=== PATIENT | female | born 1960 | race Caucasian/White ===

== ENCOUNTER → 2019-08-09 | Outpatient (REF) | payer SELFPAY | LOC: M LAB REF 14:37 | PROVIDERS: ATTEND Physician Assistant | DX: R10.33 Periumbilical pain (principal) ==

== ENCOUNTER → 2019-09-27 | Outpatient (CLI) | payer MEDICAID, SELFPAY ==
--- NOTE | 2019-09-27 14:09 | REP ---
PELVIC ULTRASOUND: Real-time sonographic evaluation of the pelvis performed utilizing transabdominal and endovaginal technique. The urinary bladder measures 6.8 x 5.7 x 8.3 cm for a total volume of 210 mL. After voiding, postvoid residual is 12 mL, which is 6% of the original volume. The uterus measures 7.4 x 2.6 x 4.4 cm. Endometrial thickness is approximately 5 mm, at the upper limits of normal. No endometrial fluid collection is seen. Ovaries are normal in size and echotexture, right ovary measuring 2.0 x 1.1 x 1.3 cm and left ovary 1.8 x 1.8 x 1.6 cm. There is no adnexal mass or free fluid. There is no evidence of ovarian torsion, blood flow is seen in each ovary with duplex Doppler evaluation. An intramural fibroid in the posterior uterine body measures 1.2 cm in diameter. IMPRESSION: Posterior uterine fibroid 1.2 cm in diameter. Endometrial thickness upper limits of normal at 5 mm. No mass or free fluid. Electronically Signed by Earnest Cross MD 09/27/2019 02:57 P
== END ==
LOC: M RAD 11:09
PROVIDERS: ATTEND Physician Assistant
DX: R10.2 Pelvic and perineal pain (principal); R35.0 Frequency of micturition; R10.33 Periumbilical pain

== ENCOUNTER → 2019-10-18 | Outpatient (REF) | payer BC, MEDICAID, SELFPAY ==
[2019-10-18 11:35] LABS: BASO % 0.6 % (0.0-1.0); EOS # 0.1 10^3/uL (0.0-0.5); EOS % 1.3 % (0.0-3.0); HEMOGLOBIN 11.6 g/dl (12.0-15.5); LYMPH # 1.9 10^3/uL (1.5-5.0); LYMPH % 40.6 % (24.0-44.0); MEAN CORPUSCULAR HEMOGLOBIN 27.6 pg (27.0-33.0); MEAN CORPUSCULAR HGB CONC 31.4 g/dl (32.0-36.5); MEAN CORPUSCULAR VOLUME 87.9 fl (80.0-96.0); MONO # 0.4 10^3/uL (0.0-0.8); MONO % 8.8 % (0.0-5.0); NEUTROPHILS # 2.2 10^3/uL (1.5-8.5); NEUTROPHILS % 48.3 % (36.0-66.0); PLATELET COUNT, AUTOMATED 322 10^3/uL (150-450); RED BLOOD COUNT 4.21 10^6/uL (4.00-5.40); WHITE BLOOD COUNT 4.7 10^3/uL (4.0-10.0)
[2019-10-18 12:00] LABS: ERYTHROCYTE SEDIMENTATION RATE 21 mm/hr (0-30)
[2019-10-18 12:02] LABS: ALBUMIN 3.4 GM/DL (3.2-5.2); ALT/SGPT 21 U/L (12-78); BILIRUBIN,TOTAL 0.3 MG/DL (0.2-1.0); BLOOD UREA NITROGEN 15 MG/DL (7-18); CALCIUM LEVEL 9.3 MG/DL (8.5-10.1); CARBON DIOXIDE LEVEL 29 MEQ/L (21-32); CHLORIDE LEVEL 107 MEQ/L (98-107); CREATININE FOR GFR 0.92 MG/DL (0.55-1.30); GLOMERULAR FILTRATION RATE > 60.0 (>51); GLUCOSE, FASTING 106 MG/DL (70-100); POTASSIUM SERUM 4.1 MEQ/L (3.5-5.1); RHEUMATOID FACTOR QUANT < 10.0 IU/ML (<15.0); SODIUM LEVEL 141 MEQ/L (136-145); TOTAL PROTEIN 7.1 GM/DL (6.4-8.2)
[2019-10-18 12:51] LABS: HEPATITIS C VIRUS ABY INDEX 0.1 INDEX (<0.8)
[2019-10-22 14:07] LABS: CYCLIC CITRULLINATED PEPTIDE 9 units (0-19); HEPATITIS B CORE ANTIBODY IGG Negative (Negative); HEPATITIS BE ANTIGEN Negative (Negative)
== END ==
LOC: M SFHCRHEU 10:12 → M PLALAB 10:12
PROVIDERS: ATTEND Internal Medicine
DX: M06.9 Rheumatoid arthritis, unspecified (principal)

== ENCOUNTER → 2022-08-10 | Outpatient (CLI) | payer BC ==
[2022-08-10 11:10] LABS: BASO % 0.7 % (0.0-1.0); EOS # 0.1 10^3/uL (0.0-0.5); EOS % 1.6 % (0.0-3.0); HEMATOCRIT 36.5 % (36.0-47.0); HEMOGLOBIN 11.5 g/dl (12.0-15.5); LYMPH # 1.9 10^3/uL (1.5-5.0); MEAN CORPUSCULAR HEMOGLOBIN 28.5 pg (27.0-33.0); MEAN CORPUSCULAR HGB CONC 31.5 g/dl (32.0-36.5); MEAN CORPUSCULAR VOLUME 90.6 fl (80.0-96.0); MONO # 0.4 10^3/uL (0.0-0.8); MONO % 9.8 % (2.0-8.0); NEUTROPHILS % 45.7 % (36.0-66.0); PLATELET COUNT, AUTOMATED 274 10^3/uL (150-450); RED BLOOD COUNT 4.03 10^6/uL (4.00-5.40); WHITE BLOOD COUNT 4.4 10^3/uL (4.0-10.0)
[2022-08-10 11:57] LABS: URIC ACID 3.9 MG/DL (3.1-7.8)
[2022-08-10 11:59] LABS: C REACTIVE PROTEIN QUANTITATIV < 0.40 MG/DL (<1.0)
[2022-08-10 12:00] LABS: RHEUMATOID FACTOR QUANT 4.7 IU/ML (<14)
[2022-08-10 12:06] LABS: ERYTHROCYTE SEDIMENTATION RATE 29 mm/hr (0-30)
[2022-08-10 12:09] LABS: ALBUMIN 3.5 G/DL (3.2-5.2); ALKALINE PHOSPHATASE 65 U/L (46-116); ALT/SGPT 24 U/L (7.0-40); AST/SGOT 29 U/L (<34); BILIRUBIN,TOTAL 0.4 MG/DL (0.3-1.2); BLOOD UREA NITROGEN 13 MG/DL (9-23); CALCIUM LEVEL 9.5 MG/DL (8.5-10.1); CARBON DIOXIDE LEVEL 31 MMOL/L (20-31); CHLORIDE LEVEL 104 MMOL/L (98-107); CHOLESTEROL LEVEL 188 MG/DL (<200); CHOLESTEROL RISK RATIO 2.43 (<5); CREATININE FOR GFR 0.97 MG/DL (0.55-1.30); GLOMERULAR FILTRATION RATE > 60.0 (>51); GLUCOSE, FASTING 79 MG/DL (60-100); HDL CHOLESTEROL 77.2 MG/DL (>40); NON-HDL-C 111 MG/DL; POTASSIUM SERUM 4.2 MMOL/L (3.5-5.1); SODIUM LEVEL 140 MMOL/L (136-145)
[2022-08-10 18:35] LABS: LDL CHOLESTEROL 99.6 MG/DL (<100); TOTAL PROTEIN 6.8 G/DL (5.7-8.2); TRIGLYCERIDES LEVEL 56 MG/DL (<150)
== END ==
LOC: M RAD 10:34
PROVIDERS: ATTEND Student in an Organized Health Care Education/Training Program
DX: Z00.00 Encounter for general adult medical examination without abnormal findings (principal); M06.9 Rheumatoid arthritis, unspecified; M25.561 Pain in right knee

== ENCOUNTER → 2022-12-26 | Outpatient (REF) | payer BC ==
[2022-12-26 13:02] LABS: BASO % 0.7 % (0.0-1.0); EOS # 0.1 10^3/uL (0.0-0.5); EOS % 1.4 % (0.0-3.0); HEMATOCRIT 36.2 % (36.0-47.0); HEMOGLOBIN 11.4 g/dl (12.0-15.5); LYMPH # 1.6 10^3/uL (1.5-5.0); MEAN CORPUSCULAR HEMOGLOBIN 28.7 pg (27.0-33.0); MEAN CORPUSCULAR HGB CONC 31.5 g/dl (32.0-36.5); MEAN CORPUSCULAR VOLUME 91.2 fl (80.0-96.0); MONO # 0.3 10^3/uL (0.0-0.8); MONO % 6.8 % (2.0-8.0); NEUTROPHILS # 2.4 10^3/uL (1.5-8.5); NEUTROPHILS % 53.9 % (36.0-66.0); PLATELET COUNT, AUTOMATED 325 10^3/uL (150-450); RED BLOOD COUNT 3.97 10^6/uL (4.00-5.40); WHITE BLOOD COUNT 4.4 10^3/uL (4.0-10.0)
[2022-12-26 13:25] LABS: C REACTIVE PROTEIN QUANTITATIV < 0.40 MG/DL (<1.0)
[2022-12-26 13:26] LABS: CPK CREATINE PHOSPHOKINASE 271 U/L (34-145); IRON (FE) 44 UG/DL (50-170); TOTAL 25(OH) VITAMIN D 65.9 NG/ML (20.0-100.0)
[2022-12-26 13:27] LABS: ALBUMIN 3.5 G/DL (3.2-5.2); ALKALINE PHOSPHATASE 63 U/L (46-116); ALT/SGPT < 9 U/L (7.0-40); AST/SGOT 25 U/L (<34); BILIRUBIN,DIRECT 0.1 MG/DL (<0.4); BILIRUBIN,TOTAL 0.5 MG/DL (0.3-1.2); BLOOD UREA NITROGEN 15 MG/DL (9-23); CARBON DIOXIDE LEVEL 31 MMOL/L (20-31); CHLORIDE LEVEL 106 MMOL/L (98-107); CREATININE FOR GFR 0.85 MG/DL (0.55-1.30); GLOMERULAR FILTRATION RATE > 60.0 (>45); GLUCOSE, FASTING 83 MG/DL (74-106); MAGNESIUM LEVEL 2.1 MG/DL (1.8-2.4); PHOSPHORUS LEVEL 3.2 MG/DL (2.4-5.1); POTASSIUM SERUM 4.5 MMOL/L (3.5-5.1); SODIUM LEVEL 142 MMOL/L (136-145); TOTAL PROTEIN 6.8 G/DL (5.7-8.2); VITAMIN B12 LEVEL 631 PG/ML (211-911)
[2022-12-26 13:41] LABS: ERYTHROCYTE SEDIMENTATION RATE 28 mm/hr (0-30)
== END ==
LOC: M SFHCRHEU 10:03
PROVIDERS: ATTEND Internal Medicine
DX: Z79.899 Other long term (current) drug therapy (principal); M06.9 Rheumatoid arthritis, unspecified; M79.10 Myalgia, unspecified site

== ENCOUNTER → 2023-05-17 | Outpatient (CLI) | payer BC | LOC: M WHC 13:13 | PROVIDERS: ATTEND Physician Assistant | DX: Z12.31 Encounter for screening mammogram for malignant neoplasm of breast (principal); Z13.820 Encounter for screening for osteoporosis; Z78.0 Asymptomatic menopausal state; N63.11 Unspecified lump in the right breast, upper outer quadrant ==

== ENCOUNTER → 2023-05-30 | Outpatient (CLI) | payer BC | LOC: M WHC 07:37 | PROVIDERS: ATTEND Physician Assistant | DX: Z12.31 Encounter for screening mammogram for malignant neoplasm of breast (principal); Z78.0 Asymptomatic menopausal state; N63.11 Unspecified lump in the right breast, upper outer quadrant ==

== ENCOUNTER → 2023-07-19 | Outpatient (REF) | payer BC ==
[2023-07-19 12:46] LABS: BASO % 0.8 % (0.0-1.0); EOS # 0.1 10^3/uL (0.0-0.5); EOS % 1.9 % (0.0-3.0); HEMATOCRIT 36.4 % (36.0-47.0); HEMOGLOBIN 11.5 g/dl (12.0-15.5); LYMPH # 1.7 10^3/uL (1.5-5.0); LYMPH % 44.4 % (24.0-44.0); MEAN CORPUSCULAR HEMOGLOBIN 28.5 pg (27.0-33.0); MEAN CORPUSCULAR HGB CONC 31.6 g/dl (32.0-36.5); MEAN CORPUSCULAR VOLUME 90.3 fl (80.0-96.0); MONO # 0.4 10^3/uL (0.0-0.8); MONO % 9.8 % (2.0-8.0); NEUTROPHILS # 1.6 10^3/uL (1.5-8.5); NEUTROPHILS % 43.1 % (36.0-66.0); PLATELET COUNT, AUTOMATED 291 10^3/uL (150-450); RED BLOOD COUNT 4.03 10^6/uL (4.00-5.40); WHITE BLOOD COUNT 3.8 10^3/uL (4.0-10.0)
== END ==
LOC: M SFHCRHEU 10:09
PROVIDERS: ATTEND Internal Medicine
DX: D50.8 Other iron deficiency anemias (principal)

== ENCOUNTER → 2023-08-21 | Outpatient (REF) | payer BC ==
[2023-08-21 17:03] LABS: C REACTIVE PROTEIN QUANTITATIV < 0.40 MG/DL (<1.0)
[2023-08-21 17:05] LABS: ALBUMIN 3.6 G/DL (3.2-5.2); ALKALINE PHOSPHATASE 63 U/L (46-116); ALT/SGPT 23 U/L (7.0-40); AST/SGOT 21 U/L (<34); BILIRUBIN,DIRECT < 0.1 MG/DL (<0.4); BILIRUBIN,TOTAL 0.3 MG/DL (0.3-1.2); BLOOD UREA NITROGEN 13 MG/DL (9-23); CARBON DIOXIDE LEVEL 32 MMOL/L (20-31); CHLORIDE LEVEL 106 MMOL/L (98-107); CREATININE FOR GFR 0.92 MG/DL (0.55-1.30); GLOMERULAR FILTRATION RATE > 60.0 (>45); GLUCOSE, FASTING 88 MG/DL (74-106); IRON (FE) 46 UG/DL (50-170); PERCENT SATURATION 14.5 % (13.2-45.0); POTASSIUM SERUM 4.8 MMOL/L (3.5-5.1); SODIUM LEVEL 141 MMOL/L (136-145); TOTAL IRON BINDING CAPACITY 317 UG/DL (250-425); TOTAL PROTEIN 6.7 G/DL (5.7-8.2)
[2023-08-21 17:18] LABS: BASO % 0.7 % (0.0-1.0); EOS # 0.1 10^3/uL (0.0-0.5); EOS % 1.6 % (0.0-3.0); HEMATOCRIT 38.3 % (36.0-47.0); HEMOGLOBIN 11.9 g/dl (12.0-15.5); LYMPH # 2.1 10^3/uL (1.5-5.0); LYMPH % 47.9 % (24.0-44.0); MEAN CORPUSCULAR HEMOGLOBIN 28.3 pg (27.0-33.0); MEAN CORPUSCULAR HGB CONC 31.1 g/dl (32.0-36.5); MEAN CORPUSCULAR VOLUME 91.2 fl (80.0-96.0); MONO # 0.3 10^3/uL (0.0-0.8); MONO % 7.4 % (2.0-8.0); NEUTROPHILS # 1.8 10^3/uL (1.5-8.5); NEUTROPHILS % 42.2 % (36.0-66.0); PLATELET COUNT, AUTOMATED 341 10^3/uL (150-450); WHITE BLOOD COUNT 4.3 10^3/uL (4.0-10.0)
[2023-08-21 17:24] LABS: ERYTHROCYTE SEDIMENTATION RATE 25 mm/hr (0-30)
== END ==
LOC: M SFHCRHEU 12:21
PROVIDERS: ATTEND Internal Medicine
DX: M06.9 Rheumatoid arthritis, unspecified (principal); D50.8 Other iron deficiency anemias

== ENCOUNTER → 2023-10-13 | Outpatient (REF) | payer BC ==
[2023-10-13 16:42] LABS: BASO % 0.8 % (0.0-1.0); EOS # 0.1 10^3/uL (0.0-0.5); EOS % 2.3 % (0.0-3.0); HEMATOCRIT 35.4 % (36.0-47.0); HEMOGLOBIN 11.7 g/dl (12.0-15.5); LYMPH # 1.8 10^3/uL (1.5-5.0); LYMPH % 45.5 % (24.0-44.0); MEAN CORPUSCULAR HEMOGLOBIN 28.9 pg (27.0-33.0); MEAN CORPUSCULAR HGB CONC 33.1 g/dl (32.0-36.5); MEAN CORPUSCULAR VOLUME 87.4 fl (80.0-96.0); MONO # 0.3 10^3/uL (0.0-0.8); MONO % 8.7 % (2.0-8.0); NEUTROPHILS # 1.7 10^3/uL (1.5-8.5); NEUTROPHILS % 42.4 % (36.0-66.0); PLATELET COUNT, AUTOMATED 314 10^3/uL (150-450); RED BLOOD COUNT 4.05 10^6/uL (4.00-5.40); WHITE BLOOD COUNT 3.9 10^3/uL (4.0-10.0)
[2023-10-13 16:48] LABS: ALBUMIN 3.6 G/DL (3.2-5.2); ALKALINE PHOSPHATASE 59 U/L (46-116); ALT/SGPT 16 U/L (7.0-40); AST/SGOT 17 U/L (<34); BILIRUBIN,DIRECT 0.1 MG/DL (<0.4); BILIRUBIN,TOTAL 0.3 MG/DL (0.3-1.2); BLOOD UREA NITROGEN 13 MG/DL (9-23); CALCIUM LEVEL 9.6 MG/DL (8.3-10.6); CARBON DIOXIDE LEVEL 26 MMOL/L (20-31); CHLORIDE LEVEL 103 MMOL/L (98-107); CREATININE FOR GFR 0.86 MG/DL (0.55-1.30); ERYTHROCYTE SEDIMENTATION RATE 48 mm/hr (0-30); GLOMERULAR FILTRATION RATE > 60.0 (>45); GLUCOSE, FASTING 95 MG/DL (74-106); POTASSIUM SERUM 4.4 MMOL/L (3.5-5.1); SODIUM LEVEL 138 MMOL/L (136-145); TOTAL PROTEIN 6.8 G/DL (5.7-8.2)
== END ==
LOC: M SFHCRHEU 12:50
PROVIDERS: ATTEND Internal Medicine
DX: M06.9 Rheumatoid arthritis, unspecified (principal)

== ENCOUNTER → 2023-10-27 | Outpatient (REF) | payer BC ==
[2023-10-27 17:41] LABS: BASO % 0.5 % (0.0-1.0); EOS # 0.1 10^3/uL (0.0-0.5); EOS % 1.1 % (0.0-3.0); HEMATOCRIT 38.5 % (36.0-47.0); HEMOGLOBIN 12.2 g/dl (12.0-15.5); LYMPH # 1.9 10^3/uL (1.5-5.0); LYMPH % 29.2 % (24.0-44.0); MEAN CORPUSCULAR HEMOGLOBIN 28.6 pg (27.0-33.0); MEAN CORPUSCULAR HGB CONC 31.7 g/dl (32.0-36.5); MEAN CORPUSCULAR VOLUME 90.4 fl (80.0-96.0); MONO # 0.4 10^3/uL (0.0-0.8); MONO % 6.7 % (2.0-8.0); NEUTROPHILS % 62.2 % (36.0-66.0); PLATELET COUNT, AUTOMATED 353 10^3/uL (150-450); RED BLOOD COUNT 4.26 10^6/uL (4.00-5.40); WHITE BLOOD COUNT 6.4 10^3/uL (4.0-10.0)
[2023-10-27 17:52] LABS: ERYTHROCYTE SEDIMENTATION RATE 41 mm/hr (0-30)
== END ==
LOC: M SFHCRHEU 15:03
PROVIDERS: ATTEND Internal Medicine
DX: M06.9 Rheumatoid arthritis, unspecified (principal)

== ENCOUNTER → 2023-11-27 | Outpatient (REF) | payer BC ==
[2023-11-27 14:13] LABS: BASO % 0.6 % (0.0-1.0); EOS # 0.1 10^3/uL (0.0-0.5); EOS % 1.6 % (0.0-3.0); HEMATOCRIT 36.7 % (36.0-47.0); HEMOGLOBIN 11.7 g/dl (12.0-15.5); LYMPH # 1.5 10^3/uL (1.5-5.0); LYMPH % 29.8 % (24.0-44.0); MEAN CORPUSCULAR HEMOGLOBIN 29.1 pg (27.0-33.0); MEAN CORPUSCULAR HGB CONC 31.9 g/dl (32.0-36.5); MEAN CORPUSCULAR VOLUME 91.3 fl (80.0-96.0); MONO # 0.4 10^3/uL (0.0-0.8); MONO % 7.3 % (2.0-8.0); NEUTROPHILS % 60.3 % (36.0-66.0); PLATELET COUNT, AUTOMATED 311 10^3/uL (150-450); RED BLOOD COUNT 4.02 10^6/uL (4.00-5.40); WHITE BLOOD COUNT 4.9 10^3/uL (4.0-10.0)
[2023-11-27 14:14] LABS: C REACTIVE PROTEIN QUANTITATIV < 0.40 MG/DL (<1.0)
[2023-11-27 14:18] LABS: ALBUMIN 3.6 G/DL (3.2-5.2); ALKALINE PHOSPHATASE 53 U/L (46-116); ALT/SGPT 26 U/L (7.0-40); AST/SGOT 18 U/L (<34); BILIRUBIN,DIRECT 0.1 MG/DL (<0.4); BILIRUBIN,TOTAL 0.5 MG/DL (0.3-1.2); BLOOD UREA NITROGEN 17 MG/DL (9-23); CALCIUM LEVEL 9.6 MG/DL (8.3-10.6); CARBON DIOXIDE LEVEL 31 MMOL/L (20-31); CHLORIDE LEVEL 105 MMOL/L (98-107); CREATININE FOR GFR 0.86 MG/DL (0.55-1.30); GLOMERULAR FILTRATION RATE > 60.0 (>45); GLUCOSE, FASTING 100 MG/DL (74-106); POTASSIUM SERUM 4.6 MMOL/L (3.5-5.1); SODIUM LEVEL 140 MMOL/L (136-145); TOTAL PROTEIN 6.6 G/DL (5.7-8.2)
[2023-11-27 14:24] LABS: ERYTHROCYTE SEDIMENTATION RATE 19 mm/hr (0-30)
== END ==
LOC: M SFHCRHEU 10:30
PROVIDERS: ATTEND Internal Medicine
DX: M06.9 Rheumatoid arthritis, unspecified (principal)

== ENCOUNTER → 2023-11-27 | Outpatient (CLI) | payer BC | LOC: M RAD 10:48 | PROVIDERS: ATTEND Internal Medicine | DX: M06.9 Rheumatoid arthritis, unspecified (principal) ==

== ENCOUNTER 2024-03-12 15:44 | Emergency (ER) | payer BC ==
[~2024-03-12] VITALS: Ht 165.1 cm; Wt 67.8 kg
[2024-03-12] MEDS ORDERED: GABA-1171 (15:58)
[2024-03-12] MEDS ORDERED: METH2.5T48 (15:58)
[2024-03-12] MEDS ORDERED: HYDR200T46 (15:58)
[2024-03-12] MEDS ORDERED: FOLI1TAB11 (15:58)
[2024-03-12 17:20] LABS: CK-MB VALUE MASS < 1.0 NG/ML (<3.6)
[2024-03-12 17:21] LABS: CPK CREATINE PHOSPHOKINASE 259 U/L (34-145); MB/CK RELATIVE INDEX 0.38 (< OR =4)
[2024-03-12 20:52] VITALS: BP 160/76; TEMP 96.2; O2SAT 99
[2024-03-13] MEDS ORDERED: CYCL-707 PO (14:15)
[2024-03-13] MEDS ORDERED: NAPR-837 PO (14:15)
== END 2024-03-12 23:20 | disposition left against medical advice (07) ==
LOC: M ED 15:44
DX: Z53.21 Procedure and treatment not carried out due to patient leaving prior to being seen by health care provider (principal)

== ENCOUNTER 2024-03-13 09:14 | Emergency (ER) | payer BC ==
[~2024-03-13] VITALS: Ht 165.1 cm; Wt 67.9 kg
[~2024-03-13 09:14] MED LIST: FOLI1TAB11; GABA-1171; HYDR200T46; METH2.5T48
[2024-03-13 11:00] LABS: BASO % 0.5 % (0.0-1.0); EOS # 0.1 10^3/uL (0.0-0.5); EOS % 1.5 % (0.0-3.0); HEMATOCRIT 37.7 % (36.0-47.0); HEMOGLOBIN 12.5 g/dl (12.0-15.5); LYMPH # 1.6 10^3/uL (1.5-5.0); LYMPH % 38.5 % (24.0-44.0); MEAN CORPUSCULAR HGB CONC 33.2 g/dl (32.0-36.5); MEAN CORPUSCULAR VOLUME 90.4 fl (80.0-96.0); MONO # 0.4 10^3/uL (0.0-0.8); MONO % 9.6 % (2.0-8.0); NEUTROPHILS % 49.7 % (36.0-66.0); PLATELET COUNT, AUTOMATED 345 10^3/uL (150-450); RED BLOOD COUNT 4.17 10^6/uL (4.00-5.40); WHITE BLOOD COUNT 4.1 10^3/uL (4.0-10.0)
[2024-03-13 11:12] LABS: INR 1.02; PROTHROMBIN TIME 13.1 SECONDS (12.5-14.5)
[2024-03-13 11:37] LABS: CK-MB VALUE MASS < 1.0 NG/ML (<3.6)
[2024-03-13 11:38] LABS: LIPASE 46 U/L (12-53)
[2024-03-13 11:40] LABS: ALBUMIN 3.7 G/DL (3.2-5.2); ALKALINE PHOSPHATASE 66 U/L (46-116); ALT/SGPT 21 U/L (7.0-40); AST/SGOT 25 U/L (<34); BILIRUBIN,DIRECT < 0.1 MG/DL (<0.4); BILIRUBIN,TOTAL 0.3 MG/DL (0.3-1.2); TOTAL PROTEIN 7.2 G/DL (5.7-8.2)
[2024-03-13 11:45] LABS: CPK CREATINE PHOSPHOKINASE 213 U/L (34-145); MB/CK RELATIVE INDEX 0.46 (< OR =4)
[2024-03-13 12:29] LABS: CK-MB VALUE MASS < 1.0 NG/ML (<3.6); CPK CREATINE PHOSPHOKINASE 193 U/L (34-145); MB/CK RELATIVE INDEX 0.51 (< OR =4)
[2024-03-13] MEDS ORDERED: ISOVUE-370 76% 100ML VIAL As Ordered ONE (12:41)
[2024-03-13] MEDS ORDERED: NAPR-837 PO (14:15)
[2024-03-13] MEDS ORDERED: CYCL-707 PO (14:15)
[2024-03-13 14:38] VITALS: BP 139/81; TEMP 98.1; O2SAT 99
== END 2024-03-13 14:41 | disposition home or self-care (01) ==
LOC: M ED 09:14
DX: R07.9 Chest pain, unspecified (principal); F41.9 Anxiety disorder, unspecified; F32.A Depression, unspecified; M06.9 Rheumatoid arthritis, unspecified; Z79.1 Long term (current) use of non-steroidal anti-inflammatories (NSAID); Z79.899 Other long term (current) drug therapy
CPT/HCPCS: 36415; 71045; 71275; 80047; 80076; 82550; 82553; 83690; 84484; 85025; 85610; 93005; 93041; 94760; 99285; Q9967

== ENCOUNTER → 2024-04-08 | Outpatient (REF) | payer BC ==
[~2024-04-08] MED LIST changes: +CYCL-707 PO; +NAPR-837 PO
[2024-04-08 13:20] LABS: BASO # 0.1 10^3/uL (0.0-0.2); BASO % 1.4 % (0.0-1.0); EOS # 0.1 10^3/uL (0.0-0.5); EOS % 2.3 % (0.0-3.0); HEMATOCRIT 36.1 % (36.0-47.0); HEMOGLOBIN 11.6 g/dl (12.0-15.5); LYMPH # 1.6 10^3/uL (1.5-5.0); MEAN CORPUSCULAR HGB CONC 32.1 g/dl (32.0-36.5); MEAN CORPUSCULAR VOLUME 93.3 fl (80.0-96.0); MONO # 0.4 10^3/uL (0.0-0.8); MONO % 11.3 % (2.0-8.0); NEUTROPHILS # 1.4 10^3/uL (1.5-8.5); PLATELET COUNT, AUTOMATED 346 10^3/uL (150-450); RED BLOOD COUNT 3.87 10^6/uL (4.00-5.40); WHITE BLOOD COUNT 3.5 10^3/uL (4.0-10.0)
[2024-04-08 13:21] LABS: C REACTIVE PROTEIN QUANTITATIV < 0.40 MG/DL (<1.0)
[2024-04-08 13:24] LABS: ALBUMIN 3.5 G/DL (3.2-5.2); ALKALINE PHOSPHATASE 65 U/L (46-116); ALT/SGPT 25 U/L (7.0-40); AST/SGOT 20 U/L (<34); BILIRUBIN,DIRECT 0.1 MG/DL (<0.4); BILIRUBIN,TOTAL 0.4 MG/DL (0.3-1.2); BLOOD UREA NITROGEN 14 MG/DL (9-23); CARBON DIOXIDE LEVEL 31 MMOL/L (20-31); CHLORIDE LEVEL 109 MMOL/L (98-107); CREATININE FOR GFR 1.06 MG/DL (0.55-1.30); GLOMERULAR FILTRATION RATE 56.1 (>45); GLUCOSE, FASTING 95 MG/DL (74-106); POTASSIUM SERUM 4.5 MMOL/L (3.5-5.1); SODIUM LEVEL 143 MMOL/L (136-145); TOTAL PROTEIN 6.8 G/DL (5.7-8.2)
[2024-04-08 13:41] LABS: ERYTHROCYTE SEDIMENTATION RATE 18 mm/hr (0-30)
== END ==
LOC: M SFHCRHEU 09:19
PROVIDERS: ATTEND Internal Medicine
DX: M06.9 Rheumatoid arthritis, unspecified (principal)

== ENCOUNTER → 2024-06-20 | Outpatient (REF) | payer BC ==
[2024-06-20 14:20] LABS: C REACTIVE PROTEIN QUANTITATIV < 0.50 MG/DL (<1.0)
[2024-06-20 14:21] LABS: ALBUMIN 3.7 G/DL (3.2-5.2); ALKALINE PHOSPHATASE 66 U/L (35-104); ALT/SGPT 21 U/L (7.0-40); AST/SGOT 24 U/L (<34); BILIRUBIN,DIRECT < 0.1 MG/DL (<0.4); BILIRUBIN,TOTAL 0.3 MG/DL (0.3-1.2); BLOOD UREA NITROGEN 14 MG/DL (9-23); CALCIUM LEVEL 9.6 MG/DL (8.3-10.6); CARBON DIOXIDE LEVEL 30 MMOL/L (20-31); CHLORIDE LEVEL 107 MMOL/L (98-107); CREATININE FOR GFR 0.88 MG/DL (0.55-1.30); GLOMERULAR FILTRATION RATE > 60.0 (>45); GLUCOSE, FASTING 107 MG/DL (74-106); POTASSIUM SERUM 4.2 MMOL/L (3.5-5.1); SODIUM LEVEL 143 MMOL/L (136-145); TOTAL PROTEIN 6.8 G/DL (5.7-8.2)
[2024-06-20 14:26] LABS: BASO % 0.8 % (0.0-1.0); EOS # 0.2 10^3/uL (0.0-0.5); EOS % 4.4 % (0.0-3.0); HEMATOCRIT 35.5 % (36.0-47.0); LYMPH # 1.6 10^3/uL (1.5-5.0); LYMPH % 31.7 % (24.0-44.0); MEAN CORPUSCULAR HEMOGLOBIN 28.6 pg (27.0-33.0); MEAN CORPUSCULAR VOLUME 92.2 fl (80.0-96.0); MONO # 0.4 10^3/uL (0.0-0.8); MONO % 8.6 % (2.0-8.0); NEUTROPHILS # 2.7 10^3/uL (1.5-8.5); NEUTROPHILS % 54.3 % (36.0-66.0); PLATELET COUNT, AUTOMATED 339 10^3/uL (150-450); RED BLOOD COUNT 3.85 10^6/uL (4.00-5.40)
[2024-06-20 14:34] LABS: ERYTHROCYTE SEDIMENTATION RATE 27 mm/hr (0-30)
== END ==
LOC: M SFHCRHEU 08:16
PROVIDERS: ATTEND Internal Medicine
DX: M06.9 Rheumatoid arthritis, unspecified (principal)

== ENCOUNTER → 2024-08-13 | Outpatient (CLI) | payer BC ==
[2024-08-13 11:13] LABS: BASO % 0.7 % (0.0-1.0); EOS # 0.2 10^3/uL (0.0-0.5); EOS % 2.8 % (0.0-3.0); HEMATOCRIT 33.7 % (36.0-47.0); HEMOGLOBIN 10.5 g/dl (12.0-15.5); LYMPH # 1.7 10^3/uL (1.5-5.0); LYMPH % 28.7 % (24.0-44.0); MEAN CORPUSCULAR HEMOGLOBIN 29.2 pg (27.0-33.0); MEAN CORPUSCULAR HGB CONC 31.2 g/dl (32.0-36.5); MEAN CORPUSCULAR VOLUME 93.9 fl (80.0-96.0); MONO # 0.5 10^3/uL (0.0-0.8); MONO % 8.7 % (2.0-8.0); NEUTROPHILS # 3.4 10^3/uL (1.5-8.5); NEUTROPHILS % 58.8 % (36.0-66.0); PLATELET COUNT, AUTOMATED 375 10^3/uL (150-450); RED BLOOD COUNT 3.59 10^6/uL (4.00-5.40); WHITE BLOOD COUNT 5.8 10^3/uL (4.0-10.0)
[2024-08-13 11:21] LABS: ERYTHROCYTE SEDIMENTATION RATE 48 mm/hr (0-30)
[2024-08-13 11:45] LABS: C REACTIVE PROTEIN QUANTITATIV 0.92 MG/DL (<1.0)
[2024-08-13 11:46] LABS: ALBUMIN 3.6 G/DL (3.2-5.2); ALKALINE PHOSPHATASE 70 U/L (35-104); ALT/SGPT 23 U/L (7.0-40); AST/SGOT 20 U/L (<34); BILIRUBIN,DIRECT < 0.1 MG/DL (<0.4); BILIRUBIN,TOTAL 0.4 MG/DL (0.3-1.2); BLOOD UREA NITROGEN 12 MG/DL (9-23); CALCIUM LEVEL 9.2 MG/DL (8.3-10.6); CARBON DIOXIDE LEVEL 30 MMOL/L (20-31); CHLORIDE LEVEL 106 MMOL/L (98-107); CREATININE FOR GFR 0.92 MG/DL (0.55-1.30); GLOMERULAR FILTRATION RATE > 60.0 (>45); GLUCOSE, FASTING 83 MG/DL (74-106); POTASSIUM SERUM 3.9 MMOL/L (3.5-5.1); SODIUM LEVEL 145 MMOL/L (136-145); TOTAL PROTEIN 6.9 G/DL (5.7-8.2)
== END ==
LOC: M WUC 08:20
PROVIDERS: ATTEND Internal Medicine
DX: M06.9 Rheumatoid arthritis, unspecified (principal)

== ENCOUNTER → 2024-10-21 | Outpatient (CLI) | payer BC ==
[2024-10-21 19:03] LABS: PERCENT SATURATION 11.5 % (13.2-45.0)
[2024-10-21 19:07] LABS: FERRITIN 21.3 NG/ML (7.3-270.7)
[2024-10-21 19:31] LABS: HEMOGLOBIN A1c 5.6 % (4.0-6.0)
== END ==
LOC: M WUC 15:21
DX: D50.9 Iron deficiency anemia, unspecified (principal); Z13.1 Encounter for screening for diabetes mellitus

== ENCOUNTER → 2024-12-30 | Outpatient (REF) | payer BC ==
[2024-12-30 19:00] LABS: BASO # 0.0 10^3/uL (0.0-0.2); BASO % 0.6 % (0.0-1.0); EOS # 0.1 10^3/uL (0.0-0.5); EOS % 1.0 % (0.0-3.0); LYMPH # 1.7 10^3/uL (1.5-5.0); LYMPH % 32.8 % (24.0-44.0); MONO # 0.4 10^3/uL (0.0-0.8); MONO % 8.3 % (2.0-8.0); NEUTROPHILS # 2.9 10^3/uL (1.5-8.5); NEUTROPHILS % 57.1 % (36.0-66.0); PLATELET COUNT, AUTOMATED 355 10^3/uL (150-450)
[2024-12-30 19:10] LABS: ERYTHROCYTE SEDIMENTATION RATE 31 mm/hr (0-30)
[2024-12-30 19:13] LABS: C REACTIVE PROTEIN QUANTITATIV < 0.50 MG/DL (<1.0)
[2024-12-30 19:14] LABS: ALT/SGPT 28 U/L (7.0-40); AST/SGOT 30 U/L (<34); CALCIUM LEVEL 9.6 MG/DL (8.3-10.6); CARBON DIOXIDE LEVEL 29 MMOL/L (20-31); CHLORIDE LEVEL 106 MMOL/L (98-107); CREATININE FOR GFR 0.95 MG/DL (0.55-1.30); GLOMERULAR FILTRATION RATE 67.7 (>45); POTASSIUM SERUM 5.0 MMOL/L (3.5-5.1); SODIUM LEVEL 147 MMOL/L (136-145)
== END ==
LOC: M SFHCRHEU 11:26
PROVIDERS: ATTEND Internal Medicine
DX: M06.9 Rheumatoid arthritis, unspecified (principal)

== ENCOUNTER → 2025-01-01 | Outpatient (CLI) | payer BC | LOC: M WUC 15:21 | PROVIDERS: ATTEND Internal Medicine | DX: M21.611 Bunion of right foot (principal); M19.071 Primary osteoarthritis, right ankle and foot; M19.072 Primary osteoarthritis, left ankle and foot ==

== ENCOUNTER → 2025-04-14 | Outpatient (CLI) | payer BC ==
[2025-04-14 17:31] LABS: BASO # 0.1 10^3/uL (0.0-0.2); BASO % 1.0 % (0.0-1.0); EOS # 0.1 10^3/uL (0.0-0.5); EOS % 1.2 % (0.0-3.0); LYMPH # 1.9 10^3/uL (1.5-5.0); LYMPH % 36.5 % (24.0-44.0); MONO # 0.4 10^3/uL (0.0-0.8); MONO % 8.3 % (2.0-8.0); NEUTROPHILS # 2.7 10^3/uL (1.5-8.5); NEUTROPHILS % 52.6 % (36.0-66.0); PLATELET COUNT, AUTOMATED 353 10^3/uL (150-450)
[2025-04-14 18:04] LABS: ALT/SGPT 21 U/L (7.0-40); AST/SGOT 30 U/L (<34); C REACTIVE PROTEIN QUANTITATIV < 0.50 MG/DL (<1.0); CALCIUM LEVEL 8.9 MG/DL (8.3-10.6); CARBON DIOXIDE LEVEL 28 MMOL/L (20-31); CHLORIDE LEVEL 107 MMOL/L (98-107); CREATININE FOR GFR 1.18 MG/DL (0.55-1.30); GLOMERULAR FILTRATION RATE 52.2 (>45); POTASSIUM SERUM 4.2 MMOL/L (3.5-5.1); SODIUM LEVEL 144 MMOL/L (136-145)
== END ==
LOC: M WUC 15:41
PROVIDERS: ATTEND Internal Medicine
DX: M06.9 Rheumatoid arthritis, unspecified (principal)

== ENCOUNTER → 2025-05-26 | Outpatient (REF) | payer BC ==
[2025-05-26 15:41] LABS: BASO # 0.0 10^3/uL (0.0-0.2); BASO % 0.6 % (0.0-1.0); EOS # 0.1 10^3/uL (0.0-0.5); EOS % 1.4 % (0.0-3.0); LYMPH # 1.8 10^3/uL (1.5-5.0); LYMPH % 35.3 % (24.0-44.0); MONO # 0.4 10^3/uL (0.0-0.8); MONO % 8.0 % (2.0-8.0); NEUTROPHILS # 2.8 10^3/uL (1.5-8.5); NEUTROPHILS % 54.5 % (36.0-66.0); PLATELET COUNT, AUTOMATED 324 10^3/uL (150-450)
[2025-05-26 16:10] LABS: ALT/SGPT 22 U/L (7.0-40); AST/SGOT 30 U/L (<34); C REACTIVE PROTEIN QUANTITATIV < 0.50 MG/DL (<1.0); CALCIUM LEVEL 9.6 MG/DL (8.3-10.6); CARBON DIOXIDE LEVEL 31 MMOL/L (20-31); CHLORIDE LEVEL 104 MMOL/L (98-107); CREATININE FOR GFR 0.93 MG/DL (0.55-1.30); GLOMERULAR FILTRATION RATE 69.5 (>45); POTASSIUM SERUM 5.1 MMOL/L (3.5-5.1); SODIUM LEVEL 143 MMOL/L (136-145)
== END ==
LOC: M SFHCRHEU 12:50
PROVIDERS: ATTEND Internal Medicine
DX: M06.9 Rheumatoid arthritis, unspecified (principal)

== ENCOUNTER → 2025-05-29 | Outpatient (REF) | payer BC ==
[2025-05-29 18:21] LABS: CHOLESTEROL LEVEL 190.0 MG/DL (<200); CHOLESTEROL RISK RATIO 2.25 (<5); LDL CHOLESTEROL 91.1 MG/DL (<100); MAGNESIUM LEVEL 2.0 MG/DL (1.8-2.4); NON-HDL-C 105.9 MG/DL; TRIGLYCERIDES LEVEL 74.0 MG/DL (<150)
== END ==
LOC: M SFHCLERA 14:05
PROVIDERS: ATTEND Internal Medicine
DX: R07.89 Other chest pain (principal)